=== PATIENT | female | born 1965 | race Caucasian/White ===

== ENCOUNTER 2018-05-23 12:28 | Emergency (ER) | payer OTHER ==
[~2018-05-23] VITALS: Ht 170.2 cm; Wt 59.0 kg
--- NOTE | 2018-05-23 12:40 | NUR ---
ER MD AT THE BEDSIDE DOING U/S OF RT KNEE.PT TOLORATED WELL.
[2018-05-23] MEDS ORDERED: IBUPROFEN 600 MG TABLET ONE (12:54)
[2018-05-23] MEDS ORDERED: IBUPROFEN 600 MG TABLET PO ONE (13:00)
[2018-05-23 13:57] VITALS: BP 106/61
--- NOTE | 2018-05-23 13:58 | NUR ---
Patient discharged to home in stable conditon. Written and verbal after care instructions given. Patient verbalizes understanding of instructions.
== END 2018-05-23 13:58 | disposition home or self-care (01) ==
LOC: ER 12:28
DX: M23.91 Unspecified internal derangement of right knee (principal); M25.461 Effusion, right knee
CPT/HCPCS: 73564; 99284; A4663

== ENCOUNTER 2018-12-05 15:07 | Emergency (ER) | payer OTHER ==
[~2018-12-05] VITALS: Ht 170.2 cm; Wt 59.0 kg
--- NOTE | 2018-12-05 15:19 | NUR ---
Dr Roque at the bedside for MSE.
[2018-12-05 15:45] VITALS: BP 114/72
--- NOTE | 2018-12-05 15:45 | NUR ---
Patient discharged to home in stable conditon. Written and verbal after care instructions given. Patient verbalizes understanding of instructions.
== END 2018-12-05 15:46 | disposition home or self-care (01) ==
LOC: ER 15:16
DX: J40 Bronchitis, not specified as acute or chronic (principal); R07.89 Other chest pain
CPT/HCPCS: 71045; A4663

== ENCOUNTER 2019-05-16 21:44 | Emergency (ER) | payer OTHER ==
[~2019-05-16] VITALS: Ht 170.2 cm; Wt 56.7 kg
--- NOTE | 2019-05-16 22:33 | NUR ---
sitting on gurney c/o left wrist pain and swelling. waiting for er md salazar
[2019-05-16 23:45] VITALS: BP 130/62
== END 2019-05-16 23:53 | disposition home or self-care (01) ==
LOC: ER 21:46
DX: S52.502A Unspecified fracture of the lower end of left radius, initial encounter for closed fracture (principal); W19.XXXA Unspecified fall, initial encounter; Y93.89 Activity, other specified; Y92.89 Other specified places as the place of occurrence of the external cause; Y99.8 Other external cause status
CPT/HCPCS: 73100; A4663

== ENCOUNTER 2024-02-22 10:59 | Emergency (ER) | payer OTHER ==
[~2024-02-22] VITALS: Ht 170.2 cm; Wt 63.5 kg
[2024-02-22 12:18] VITALS: BP 133/87; TEMP 97; O2SAT 99
== END 2024-02-22 12:18 | disposition home or self-care (01) ==
LOC: ER 10:59
DX: S20.211A Contusion of right front wall of thorax, initial encounter (principal); W22.8XXA Striking against or struck by other objects, initial encounter; Y93.89 Activity, other specified; Y92.89 Other specified places as the place of occurrence of the external cause; Y99.8 Other external cause status
CPT/HCPCS: 71250; A4606; A4663